=== PATIENT | female | born 1940 | race Caucasian/White ===

== ENCOUNTER 2025-08-29 14:55 | Emergency (ER) | payer MEDICARE, SELFPAY ==
[2025-08-29] VITALS (24 sets, daily range): BP systolic 193–223; BP diastolic 78–118; PULSE 51–87; RESP 13–26; O2SAT 97–99
--- NOTE | 2025-08-29 14:45 | RT.EKG_ITS ---
APPROVED REPORT Exam: Resting ECG Reason for Exam: lightheaded Patient Location: E HR:66 bpm ECG Measurements Heart Rate 66 AXIS KS 188 P 62 QRSd 93 QRS 72 QT 416 T 91 QTc 433 Conclusion Sinus rhythm, rate 66 PACs No interval abnormalities No STEMI, Q waves V1-V3 No priors available for comparison
--- NOTE | 2025-08-29 15:15 | DI.RAD_ITS ---
Exam(s) XR CHEST 2V PA LATERAL EXAM: XR CHEST 2V PA LATERAL CLINICAL HISTORY: mild SOB TECHNIQUE: 2D digital imaging was performed of the chest. Two images were obtained. PA and lateral views were obtained. COMPARISON: No exams were available for comparison FINDINGS: MEDIASTINUM: Normal. HEART: Normal. PULMONARY VASCULATURE: Normal. LUNGS: There are bilateral opacities in the lungs. The lungs are hyperinflated consistent with underlying COPD. There is scarring in the lung apices, right greater than left. PLEURAL SPACE: No pleural effusion or pneumothorax. BONE:Within normal limits for the patient's age. OTHER FINDINGS:There are surgical clips over the left chest wall. IMPRESSION: 1. Bilateral pulmonary opacities. These may be chronic and represent scarring however pneumonia cannot be excluded. Atelectasis should also be considered. 2. The preliminary [facility] report was reviewed. DATA REPOSITORY: RADIATION DOSE DELIVERED:
--- NOTE | 2025-08-29 15:22 | W.ED.GENAD ---
Discharge Plan Disposition Patient Disposition: Home Condition: Stable Discharge Details Clinical Impression: Positional lightheadedness, Chronic hyponatremia, Pneumonia, Hypertension Primary Care Provider: Niya,Local ED Provider: Fadumo Kaplan Home Meds and New Rx's Prescriptions: New azithromycin 250 mg tablet 250 mg PO DAILY 4 Days Qty: 4 0RF Rx Instructions: start on day 2 of therapy No Action labetalol 100 mg tablet 50 mg PO BID Edarbi 40 mg tablet 40 mg PO DAILY spironolactone [Aldactone] 25 mg tablet 25 mg PO DAILY Discharge Instructions Instructions: Community-Acquired Pneumonia, Adult (DC) Additional Instructions: You were seen in the emergency department today for lightheadedness and shortness of breath. In our department a full physical examination performed, had reassuring laboratory studies, though I do note that your sodium is low, which you report is a chronic problem for you. Your blood pressure was quite elevated today, please continue to take all of your medications at home without missing doses. You received some fluids for rehydration. There was no sign of damage to your heart, you had an x-ray that did show a early pneumonia developing in your left lung, for which I have started you on antibiotics. He is continue to maintain good hydration and nutrition and use caution when transitioning from sitting to standing to avoid getting dizzy. Please follow-up with your primary care provider in the next few days to discuss this visit and any symptoms that change, worsen, or persist. Thank you for allowing us to be part of your care. Stand Alone Forms: Portal Information HPI General Mode of arrival: ambulatory. Date/Time Provider Initiated Documentation: 08/29/25 14:59. Limitations to Documentation: no limitations. Information obtained by: patient, family and old records reviewed. HPI Narrative: This is an 85-year-old female patient with a past medical history significant for high blood pressure, breast cancer, presenting for evaluation of lightheadedness. The patient reports that for the last few days she has not quite felt herself, endorses an increasing frequency of leg cramping, which she has dealt with for some time. She was fatigued after a night of poor sleep, and today had been feeling lightheaded. She states that she felt much more lightheaded after having a glass of apple juice and Prosecco, states that she stood up from the table and felt increasingly sweaty, with lightheadedness and felt like she needed to sit down in case she lost consciousness. She never had any vertiginous symptoms, chest pain, headache, nausea or vomiting. She has been maintaining her hydration and nutrition normally for her, has taken her blood pressure medicines today. The patient resides in [place] and is traveling back home on Tuesday. She reports that she has not had any other changes to her health recently, but has had some increased fatigue, and a little bit of dyspnea with excessive stair climbing. Related Data Home Medications ?Medication ?Instructions ?Recorded ?Confirmed azilsartan medoxomil 40 mg tablet 40 mg PO DAILY 08/29/25 08/29/25 (Edarbi) azithromycin 250 mg tablet 250 mg PO DAILY 4 days #4 tabs 08/29/25 labetalol 100 mg tablet 50 mg PO BID 08/29/25 08/29/25 spironolactone 25 mg tablet 25 mg PO DAILY 08/29/25 08/29/25 (Aldactone) Previous Rx's ?Medication ?Instructions ?Recorded azithromycin 250 mg tablet 250 mg PO DAILY 4 days #4 tabs 08/29/25 Allergies Allergy/AdvReac Type Severity Reaction Status Date / Time No Known Allergies Allergy Unverified 08/29/25 15:02 General Stated Complaint: Dizzy/Sync GEN: 3 Exam Narrative Exam Narrative: Gen: awake and alert, in no apparent distress. Appears well nourished. HEENT: PERRL, EOMs full and without nystagmus. External ears and nose normal, mucous membranes moist. Neck: Supple, full range of motion, no observable masses Lungs: No increased work of breathing, lung sounds clear and equal bilaterally without wheezes, rhonchi, or rales. CV: Heart with regular rate and rhythm, no murmurs auscultated. Strong and symmetrical radial pulses. Abdomen: Soft, nondistended, non-tender to palpation. No rigidity, rebound tenderness, or guarding. MSK: No joint swelling, no redness. Full ROM without limitation, no external traumatic findings. No peripheral edema Skin: No rashes or lesions to visualized skin. Normal color, warm, and dry. Neuro: Cranial nerves II-XII intact and symmetrical bilaterally. 5/5 strength in all muscle groups x4 extremities. No sensory deficits. Ambulates with steady gait. Psych: Appropriate for situation. Course Vital Signs Vital signs: Vital Signs Pulse 65 08/29/25 14:59 Respiratory Rate 18 08/29/25 14:59 Blood Pressure 199/78 H 08/29/25 14:59 Pulse Oximetry 97 08/29/25 14:59 Pulse 65 08/29/25 14:59 Respiratory Rate 20 08/29/25 15:16 Respiratory Effort Normal 08/29/25 15:16 Respiratory Depth Normal 08/29/25 15:16 Respiratory Pattern Normal 08/29/25 15:16 Blood Pressure 199/78 H 08/29/25 14:59 Blood Pressure Position Supine 08/29/25 14:59 Pulse Oximetry 97 08/29/25 14:59 Oxygen Delivery Method Room Air 08/29/25 14:59 Oxygen Flow Rate 0 08/29/25 14:59 Pain Level 0 08/29/25 14:59 Medical Decision Making This is an 85-year-old female patient presenting for evaluation of lightheadedness and near syncope. Differential includes but is not limited to orthostasis, vasovagal syndrome, certainly considered arrhythmia, no chest pain to suggest ACS. I considered metabolic and electrolyte derangement especially in the setting of leg cramping, considered anemia, kidney and liver injury. Considered medication and alcohol effect, no seizure activity, no neurodeficits to suggest stroke or intracranial hemorrhage. Reassuringly, the patient's lightheadedness has resolved, and she is hemodynamically appropriate though hypertensive on initial evaluation. EKG was obtained, shows a sinus rhythm with PACs but no other evidence of acute abnormality such as ischemia, no priors available for comparison. I will provide the patient with a liter of IV fluids (no history of heart failure), and obtain labs to include CBC, CMP, magnesium, troponin, and chest x-ray. - I reviewed the patient's laboratory studies, which show no significant leukocytosis, anemia or thrombocytopenia. The chemistry panel shows hyponatremia to 128, which the patient reports is typical for her and followed by her outpatient providers. No other electrolyte derangements, evidence of kidney or liver dysfunction. Troponin is negative and without interval increase on 1 hour delta recheck. BNP is not significantly elevated today, ethyl alcohol negative. The x-ray of the chest reveals a consolidation in the left lower lung, which may represent developing pneumonia. Given her shortness of breath on exertion that she described, it is reasonable to treat her with antibiotics and her first dose of azithromycin was provided here in the emergency department. She remained without recurrence of her lightheadedness, I am most concerned for vasovagal or orthostatic lightheadedness given the position malady and the otherwise reassuring evaluation today. Her blood pressure remained elevated here today, and I did estate planning counselor her that she needs to follow-up with her PCP to discuss any medication changes that need to occur. In the absence of headache or neurodeficits, troponin or creatinine elevation I do not see an indication to change medications at this time, and in fact want to avoid excessive lowering of her blood pressure given her recent lightheadedness. At this time, the patient has had a full medical evaluation and is safe for discharge to home. They are hemodynamically stable, ambulatory, and tolerating PO. They are understanding of the follow-up plan and return precautions. They left our facility without incident. Fadumo Kaplan MD [facility] All Active Problems (Updated 08/29/25 @ 17:10 by Fadumo Kaplan MD) Hypertension (Chronic) Pneumonia (Acute) Chronic hyponatremia (Acute) Positional lightheadedness (Acute) Social History Smoking risk assessment performed?: No
[2025-08-29 15:37] LABS: Abs Immature Grans 0.01 10^3/uL (0.0-0.06); HCT 35.2 % (36.0-46.0); HGB 11.9 g/dL (11.2-15.7); Immature Grans % 0.1 %; MCH 30.2 pg (27.0-33.0); MCHC 33.8 % (32.0-36.0); MCV 89 fL (80-95); MPV 9.0 fL (8.0-11.0); Platelet Count 194 10^3/uL (130-400); RBC 3.94 10^6/uL (3.93-5.22); RDW 12.6 % (11.7-14.6); RDW-SD 41.6 fL; WBC 6.79 10^3/uL (4.4-10.8)
[2025-08-29 15:56] LABS: Troponin I 14 ng/L (<35)
[2025-08-29 15:57] LABS: Magnesium 1.7 mg/dL (1.6-2.6)
[2025-08-29 15:58] LABS: ALT 20 U/L (10-49); AST 23 U/L (<34); Albumin 4.5 g/dL (3.2-5.0); Alkaline Phosphatase 71 U/L (46-116); Anion Gap 5.7 mmol/L (3-11); BUN 18 mg/dL (9-23); Bilirubin, Total 0.40 mg/dL (0.2-1.2); CO2 25.6 mmol/L (20.0-31.0); Calcium 9.4 mg/dL (8.3-10.6); Chloride 97 mmol/L (98-107); Glucose 92 mg/dL (74-106); Potassium 4.9 mmol/L (3.5-5.1); Sodium 128 mmol/L (136-145); Total Protein 7.4 g/dL (5.7-8.2)
[2025-08-29] MEDS: Lactated Ringers 1,000 ML 1000 ML IV (16:01)
--- NOTE | 2025-08-29 16:04 | DI.[facility]_ITS ---
PROCEDURE INFORMATION: Exam: XR Chest Exam date and time: 08/29/2025 3:53 PM Age: 85 years old Clinical indication: Shortness of breath; Additional info: Swelling, trauma TECHNIQUE: Imaging protocol: Radiologic exam of the chest. Views: 2 views. COMPARISON: No relevant prior studies available. FINDINGS: Lungs: Mild opacities in the left lower lobe may represent atelectasis or pneumonia.. Hyperexpanded lung wheeler consistent with COPD Pleural spaces: Unremarkable. No pleural effusion. No pneumothorax. Heart/Mediastinum: Unremarkable. No cardiomegaly. Bones/joints: Unremarkable. IMPRESSION: Mild opacities in the left lower lobe may represent atelectasis or pneumonia.. Dictated and Authenticated by: Mark Kern MD. Orderin [facility]. Shola Thorne MD
[2025-08-29] MEDS: Azithromycin 250 MG TAB 500 MG PO (16:44)
[2025-08-29 16:57] LABS: Troponin I 13 ng/L (<35)
== END 2025-08-29 17:17 | disposition home or self-care (01) ==
PROVIDERS: Emergency Provider Emergency Medicine
DX: J18.9 Pneumonia, unspecified organism (principal); I10 Essential (primary) hypertension; R42 Dizziness and giddiness; E87.1 Hypo-osmolality and hyponatremia
CPT/HCPCS: 36415; 80053; 93005; 96360; 99284; 71046; 80320; 83735; 83880; 84484; 85025; 93010